=== PATIENT | male | born 1995 | race Caucasian/White ===

== ENCOUNTER 2020-03-04 15:11 | Emergency (ER) | payer OTHER ==
[2020-03-04] MEDS ORDERED: KEFLEX250 MG PO (16:38)
[2020-03-04] MEDS ORDERED: IBUPROFEN800 MG PO (16:38)
== END 2020-03-04 16:50 | disposition home or self-care (01) ==
LOC: FER 15:11
DX: S51.012A Laceration without foreign body of left elbow, initial encounter (principal); S00.83XA Contusion of other part of head, initial encounter; F17.210 Nicotine dependence, cigarettes, uncomplicated; Z23 Encounter for immunization; W17.89XA Other fall from one level to another, initial encounter; Y92.009 Unspecified place in unspecified non-institutional (private) residence as the place of occurrence of the external cause
CPT/HCPCS: 73080; 90471; 90715